=== PATIENT | male | born 1980 | race Caucasian/White ===

== ENCOUNTER 2017-07-21 20:02 | Emergency (ER) | payer OTHER ==
[~2017-07-21] VITALS: Ht 175.2 cm; Wt 90.7 kg
[~2017-07-21 20:02] MED LIST: AMOXICILLIN125 MG PO; ANAPROX DS550 MG PO; BACTRIM DS 8001 TA1 PO; CEPHALEXIN500 M1 PO; COZAAR100 MG PO; CYCLOBENZAPRINE10 MG PO; FLEXERIL10 MG PO; HYDROCODONE BIT1 T11 PO; KEFLEX500 MG PO; LISINOPRIL HCTZ1 TA1 PO; MEDROL DOSEPAK4 MG PO; MOBIC7.5 MG PO; MOTRIN800 MG PO; Motrin,Rufen800 MG PO; NAPROSYN500 MG PO; NEURONTIN300 MG PO; ROBAXIN750 MG PO; SEROQUEL50 MG PO; SKELAXIN800 MG PO; SUBOXONE 8 MG-1 EACH SL; TRAMADOL HCL50 MG PO
[2017-07-21] MEDS ORDERED: MEDROL DOSEPAK4 MG PO (20:56)
== END 2017-07-21 22:02 | disposition home or self-care (01) ==
LOC: ED 20:02
DX: M25.521 Pain in right elbow (principal); L20.9 Atopic dermatitis, unspecified; F17.200 Nicotine dependence, unspecified, uncomplicated; Z79.899 Other long term (current) drug therapy

== ENCOUNTER 2017-12-06 15:35 | Emergency (ER) | payer OTHER ==
[~2017-12-06] VITALS: Ht 175.2 cm; Wt 90.7 kg
[2017-12-06] MEDS ORDERED: NAPROSYN500 MG PO (16:38)
[2017-12-06] MEDS ORDERED: BROMFED DM COU118 M2 PO (16:38)
== END 2017-12-06 16:42 | disposition home or self-care (01) ==
LOC: ED 15:35
DX: S40.021A Contusion of right upper arm, initial encounter (principal); J06.9 Acute upper respiratory infection, unspecified; F17.200 Nicotine dependence, unspecified, uncomplicated; W45.8XXA Other foreign body or object entering through skin, initial encounter; Y93.89 Activity, other specified; Y92.89 Other specified places as the place of occurrence of the external cause; Y99.8 Other external cause status

== ENCOUNTER 2018-04-05 12:18 | Emergency (ER) | payer OTHER ==
[~2018-04-05] VITALS: Ht 175.2 cm; Wt 90.7 kg
[~2018-04-05 12:18] MED LIST changes: +BROMFED DM COU118 M2 PO
== END 2018-04-05 14:00 | disposition left against medical advice (07) ==
LOC: ED 12:18
DX: S01.01XA Laceration without foreign body of scalp, initial encounter (principal); S50.811A Abrasion of right forearm, initial encounter; M25.521 Pain in right elbow; G89.29 Other chronic pain; Y04.0XXA Assault by unarmed brawl or fight, initial encounter; Y93.89 Activity, other specified; Y92.89 Other specified places as the place of occurrence of the external cause; Y99.9 Unspecified external cause status

== ENCOUNTER 2018-10-16 15:35 | Emergency (ER) | payer OTHER ==
[~2018-10-16] VITALS: Ht 175.2 cm; Wt 90.7 kg
[2018-10-16 16:15] LABS: BASO # 0.1 10*3/uL (0.0-0.1); BASO % 0.5 % (0.0-1.0); EOS # 0.2 10*3/uL (0.0-0.4); EOS % 1.4 % (1.0-4.0); HEMATOCRIT 41.2 % (42.0-52.0); HEMOGLOBIN 14.1 g/dl (14.0-18.0); LYMPH # 1.6 10*3/uL (1.3-4.4); LYMPH % 10.6 % (27.0-41.0); MEAN CELL VOLUME 89.4 fl (80.0-94.0); MEAN CORPUSCULAR HGB 30.6 pg (27.0-31.0); MEAN CORPUSCULAR HGB CONC 34.2 g/dl (33.0-37.0); MEAN PLATELET VOLUME 9.9 fl (9.6-12.3); MONO # 1.2 10*3/uL (0.1-1.0); MONO % 7.8 % (3.0-9.0); NEUT % 79.3 % (47.0-73.0); PLATELET COUNT AUTOMATED 278 10*3/uL (130-400); RED BLOOD COUNT 4.61 10*6/uL (4.50-5.90); RED CELL DISTRI WIDTH 12.6 % (0-14.5); WHITE BLOOD COUNT 15.1 10*3/uL (4.8-10.8)
[2018-10-16] MEDS ORDERED: LEVAQUIN750 M1 PO (16:39)
[2018-10-16] MEDS ORDERED: FLAGYL500 MG PO (16:39)
[2018-10-16] MEDS ORDERED: Motrin,Rufen800 MG PO (16:57)
== END 2018-10-16 16:51 | disposition home or self-care (01) ==
LOC: ED 15:35
PROVIDERS: Emergency Medicine
DX: L02.215 Cutaneous abscess of perineum (principal); G89.29 Other chronic pain; Z79.899 Other long term (current) drug therapy

== ENCOUNTER → 2019-01-06 | Outpatient (CLI) | payer OTHER ==
[~2019-01-06] MED LIST changes: +FLAGYL500 MG PO; +LEVAQUIN750 M1 PO
== END | disposition home or self-care (01) ==
LOC: MRI 12-29 11:00
DX: F07.81 Postconcussional syndrome (principal); D32.9 Benign neoplasm of meninges, unspecified; R41.3 Other amnesia

== ENCOUNTER 2019-04-30 14:08 | Emergency (ER) | payer OTHER ==
[~2019-04-30] VITALS: Wt 108.9 kg
== END 2019-04-30 18:00 | disposition expired ==
LOC: ED 14:08
DX: T40.4X1A Poisoning by other synthetic narcotics, accidental (unintentional), initial encounter (principal); I46.8 Cardiac arrest due to other underlying condition; G89.29 Other chronic pain; Z79.899 Other long term (current) drug therapy; Z79.2 Long term (current) use of antibiotics; Y92.098 Other place in other non-institutional residence as the place of occurrence of the external cause